=== PATIENT | male | born 1955 | race African-American/Black ===

== ENCOUNTER 2024-07-08 03:34 | Emergency (ER) | payer MEDICARE, MEDICAID ==
[~2024-07-08] VITALS: Ht 182.9 cm; Wt 61.0 kg
[~2024-07-08 03:34] MED LIST: DOCU-422 PO; ENOX80DI8 SUBCUT; FINA5TAB11 PO; IPRA3AMP9 NEB; PANT40TA51 PO; TAMSULOSIN PO
[2024-07-08 03:39] VITALS: O2SAT 100
[2024-07-08 03:52] VITALS: TEMP 36.83628
[2024-07-08 10:39] VITALS: BP 123/73; PULSE 90; RESP 18; O2SAT 93
== END 2024-07-08 10:40 | disposition home or self-care (01) ==
LOC: ER 03:45
DX: R33.9 Retention of urine, unspecified (principal); E11.9 Type 2 diabetes mellitus without complications; N28.9 Disorder of kidney and ureter, unspecified; Z86.718 Personal history of other venous thrombosis and embolism; Z79.899 Other long term (current) drug therapy
CPT/HCPCS: 51702; 99284

== ENCOUNTER 2024-07-11 09:50 | Emergency (ER) | payer MEDICARE, MEDICAID ==
[~2024-07-11] VITALS: Ht 182.9 cm; Wt 59.0 kg
[2024-07-11 09:57] VITALS: O2SAT 96
[2024-07-11] MEDS: LEVOFLOXACIN 750MG PREMIX 150 ML IV ONE (12:00)
[2024-07-11] MEDS: ACETAMINOPHEN WITH CODEINE 300/30MG TABLET PO ONE (12:15)
[2024-07-11 12:27] LABS: CHLORIDE 92 mEq/L (98-107); POTASSIUM 4.1 mEq/L (3.5-5.1); SODIUM 135 mEq/L (136-145)
[2024-07-11 12:28] LABS: CALCIUM 9.5 mg/dL (8.7-10.4); CARBON DIOXIDE 40 mEq/L (21-32); HEMATOCRIT. 38.2 % (42.0-52.0); MEAN CORPUSCULAR HEMOGLOBIN 31.1 pg (28.0-32.0); MEAN CORPUSCULAR VOLUME 91.5 fL (80.0-94.0); MEAN PLATELET VOLUME 6.8 fl (7.4-10.4); PLATELET 268 x1000/uL (130-400); RED BLOOD CELL COUNT 4.17 mill/uL (4.7-6.1); RED CELL DISTRIBUTION WIDTH 14.1 % (11.6-14.6); WHITE BLOOD COUNT 9.5 x1000/uL (4.5-11.0)
[2024-07-11 12:33] LABS: CREATININE 0.4 mg/dL (0.6-1.3); GLUCOSE 123 mg/dL (70-105); UREA NITROGEN BLOOD 8 mg/dL (9-23)
[2024-07-11 12:54] LABS: DIFFERENTIAL COMMENT 1
[2024-07-11 13:21] LABS: CLARITY URINE TURBID (CLEAR); COLOR URINE YELLOW (YELLOW); GLUCOSE URINE NEGATIVE (NEGATIVE); KETONES URINE NEGATIVE (NEGATIVE); LEUKOCYTE ESTERASE URINE TRACE (NEGATIVE); NITRITE URINE NEGATIVE (NEGATIVE); OCCULT BLOOD URINE 2+ (NEGATIVE); PROTEIN URINE TRACE (NEGATIVE); SPECIFIC GRAVITY URINE 1.009 (1.005-1.030); UROBILINOGEN URINE 0.2 E.U./dL (0.2-1.0)
[2024-07-11 13:29] VITALS: TEMP 97.6
[2024-07-11 13:33] LABS: SQUAMOUS EPITHELIAL CELL URINE RARE /lpf (RARE/1+)
[2024-07-11 13:34] LABS: AMORPHOUS SEDIMENT URINE 1+ /lpf; BACTERIA URINE 1+; RBC URINE 25-50 /hpf (0-2)
[2024-07-11] MEDS: LEVOFLOXACIN 250MG PREMIX 50 ML IV SCH (14:15)
[2024-07-11 14:32] VITALS: BP 143/85; PULSE 97; RESP 19; O2SAT 97
[2024-07-11 15:07] LABS: PLATELET ESTIMATE NORMAL
== END 2024-07-11 14:34 | disposition home or self-care (01) ==
LOC: ER 09:57 → EDBEDREQ 12:38 → ER 14:34
DX: T83.010A Breakdown (mechanical) of cystostomy catheter, initial encounter (principal); E11.9 Type 2 diabetes mellitus without complications; D64.9 Anemia, unspecified; N40.0 Benign prostatic hyperplasia without lower urinary tract symptoms; Z79.899 Other long term (current) drug therapy; Z86.718 Personal history of other venous thrombosis and embolism; X58.XXXA Exposure to other specified factors, initial encounter; Y93.89 Activity, other specified; Y92.89 Other specified places as the place of occurrence of the external cause; Y99.8 Other external cause status
CPT/HCPCS: 99285; 96365; 80048; 81003; 85025; 87086; 36415; J1956; C1893

== ENCOUNTER 2024-07-11 22:41 | Inpatient (IN) | payer MEDICARE, MEDICAID ==
[~2024-07-11] VITALS: Ht 177.8 cm; Wt 65.8 kg
[2024-07-12] VITALS (16 sets, daily range): BP systolic 93–156; BP diastolic 60–106; PULSE 80–141; RESP 17–20; TEMP 37.61412–37.6412; O2SAT 96–100
[2024-07-12 02:26] LABS: BASOPHILS % 0.3 % (0.0-2.0); EOSINOPHILS % 0.1 % (0.0-5.0); HEMATOCRIT. 38.9 % (42.0-52.0); HEMOGLOBIN. 13.1 g/dL (14.0-18.0); LYMPHOCYTES % 7.4 % (20.0-50.0); MEAN CORPUSCULAR HGB CONC 33.8 g/dL (31.0-37.0); MEAN CORPUSCULAR VOLUME 91.8 fL (80.0-94.0); MEAN PLATELET VOLUME 6.9 fl (7.4-10.4); MONOCYTES % 5.2 % (2.0-8.0); PLATELET 262 x1000/uL (130-400); RED BLOOD CELL COUNT 4.24 mill/uL (4.7-6.1); RED CELL DISTRIBUTION WIDTH 13.9 % (11.6-14.6); WHITE BLOOD COUNT 8.1 x1000/uL (4.5-11.0)
[2024-07-12 04:26] LABS: CLARITY URINE CLOUDY (CLEAR); COLOR URINE YELLOW (YELLOW); GLUCOSE URINE NEGATIVE (NEGATIVE); KETONES URINE NEGATIVE (NEGATIVE); LEUKOCYTE ESTERASE URINE 1+ (NEGATIVE); NITRITE URINE NEGATIVE (NEGATIVE); OCCULT BLOOD URINE 2+ (NEGATIVE); PROTEIN URINE 1+ (NEGATIVE); SPECIFIC GRAVITY URINE 1.009 (1.005-1.030); UROBILINOGEN URINE 0.2 E.U./dL (0.2-1.0)
[2024-07-12 04:54] LABS: CHLORIDE 91 mEq/L (98-107); SODIUM 138 mEq/L (136-145)
[2024-07-12 04:58] LABS: CALCIUM 9.7 mg/dL (8.7-10.4); CREATININE 0.4 mg/dL (0.6-1.3); GLUCOSE 139 mg/dL (70-105); UREA NITROGEN BLOOD 10 mg/dL (9-23)
[2024-07-12 05:01] LABS: CARBON DIOXIDE > 40 mEq/L (21-32)
[2024-07-12 05:07] LABS: BACTERIA URINE 1+; SQUAMOUS EPITHELIAL CELL URINE 1+ /lpf (RARE/1+)
[2024-07-12] MEDS ORDERED: LEVOFLOXACIN 250MG PREMIX 50 ML IV SCH (10:30)
[2024-07-12] MEDS ORDERED: GUAIFENESIN 200MG/10ML SUGAR FREE UDC PO PRN (10:30)
[2024-07-12] MEDS ORDERED: MAGNESIUM/ALUMINUM HYDROXIDE/SIMETHICONE 30ML UDC PO PRN (10:30)
[2024-07-12] MEDS ORDERED: ONDANSETRON HCL 4MG/2ML INJ IV PRN (10:30)
[2024-07-12 13:25] LABS: HEMATOCRIT. 40.5 % (42.0-52.0); HEMOGLOBIN. 13.3 g/dL (14.0-18.0); MEAN CORPUSCULAR HEMOGLOBIN 30.6 pg (28.0-32.0); MEAN CORPUSCULAR HGB CONC 32.7 g/dL (31.0-37.0); MEAN CORPUSCULAR VOLUME 93.6 fL (80.0-94.0); MEAN PLATELET VOLUME 6.9 fl (7.4-10.4); PLATELET 268 x1000/uL (130-400); RED BLOOD CELL COUNT 4.33 mill/uL (4.7-6.1)
[2024-07-12 13:27] LABS: DIFFERENTIAL COMMENT 1
[2024-07-12 13:38] LABS: BG BASE EXCESS 8.8 mmol/L (-2.0-3.0); BG CARBOXYHEMOGLOBIN 0.4 % (0.5-1.5); BG DEOXYHEMOGLOBIN 0.1 % (0.0-5.0); BG FRACTION INSPIRED OXYGEN 100; BG METHEMOGLOBIN 0.1 % (0.5-1.5); BG OXYGEN SATURATION 99.9 % (94.0-98.0); BG OXYHEMOGLOBIN 99.4 % (94.0-98.0); BG PCO2 119.7 mmHg (35.0-48.0); BG PH 7.163 (7.350-7.450); BG PO2 527.7 mmHg (83.0-108.0); BG SAMPLE SITE RIGHT RADIAL; BG TOTAL HEMOGLOBIN 13.3 g/dL (13.5-17.5); BG VENT MODE VENT - AC
[2024-07-12 13:44] LABS: CHLORIDE 95 mEq/L (98-107); POTASSIUM 4.9 mEq/L (3.5-5.1); SODIUM 142 mEq/L (136-145)
[2024-07-12 13:45] LABS: CALCIUM 9.5 mg/dL (8.7-10.4); CARBON DIOXIDE 39 mEq/L (21-32)
[2024-07-12 13:50] LABS: CREATININE 0.5 mg/dL (0.6-1.3); GLUCOSE 159 mg/dL (70-105); UREA NITROGEN BLOOD 15 mg/dL (9-23)
[2024-07-12 13:52] LABS: PHOSPHORUS 5.2 mg/dL (2.5-4.9); TROPONIN I HIGH SENSITIVITY 17 ng/L (3.0-53)
[2024-07-12] MEDS ORDERED: PROPOFOL 10MG/ML 100ML 100 ML IV PRN (14:00)
[2024-07-12] MEDS ORDERED: PHENYLEPHRINE 50MG/250ML PMX 250 ML IV PRN (15:45)
[2024-07-12] MEDS ORDERED: DEXTROSE 50% WATER 50ML SYRINGE IV PRN (15:45)
[2024-07-12 16:04] LABS: CHLORIDE 97 mEq/L (98-107); POTASSIUM 4.4 mEq/L (3.5-5.1); SODIUM 143 mEq/L (136-145)
[2024-07-12 16:05] LABS: CALCIUM 9.4 mg/dL (8.7-10.4); CARBON DIOXIDE 36 mEq/L (21-32)
[2024-07-12 16:10] LABS: CREATININE 0.4 mg/dL (0.6-1.3); GLUCOSE 119 mg/dL (70-105); UREA NITROGEN BLOOD 16 mg/dL (9-23)
[2024-07-12 16:11] LABS: TROPONIN I HIGH SENSITIVITY 27 ng/L (3.0-53)
[2024-07-12 16:12] LABS: BG BASE EXCESS 8.3 mmol/L (-2.0-3.0); BG CARBOXYHEMOGLOBIN 0.1 % (0.5-1.5); BG DEOXYHEMOGLOBIN 1.2 % (0.0-5.0); BG FRACTION INSPIRED OXYGEN 40; BG HCO3 ACT 32.3 mmol/L (21.0-28.0); BG METHEMOGLOBIN 0.2 % (0.5-1.5); BG OXYGEN SATURATION 98.8 % (94.0-98.0); BG OXYHEMOGLOBIN 98.5 % (94.0-98.0); BG PCO2 42.5 mmHg (35.0-48.0); BG PH 7.499 (7.350-7.450); BG PO2 138.1 mmHg (83.0-108.0); BG SAMPLE SITE RIGHT RADIAL; BG TOTAL HEMOGLOBIN 12.7 g/dL (13.5-17.5); BG TOTAL RESPIRATORY RATE 20 b/min; BG VENT MODE VENT - AC
[2024-07-12 16:12] LABS: ALANINE AMINOTRANSFERASE 45 IU/L (10-49); ASPARTATE AMINOTRANSFERASE 30 IU/L (<34); BILIRUBIN TOTAL 0.9 mg/dL (0.1-1.0); PROTEIN TOTAL 6.8 g/dL (6.0-8.3)
[2024-07-12 16:19] LABS: PROTHROMBIN TIME 10.9 sec (9.6-11.0)
[2024-07-12] MEDS: LEVOFLOXACIN 250MG TABLET PO SCH (17:30)
[2024-07-12] MEDS: BLOOD SUGAR DIAGNOSTIC STRIP TEST SCH (17:30)
[2024-07-12] MEDS: FINASTERIDE 5MG TABLET PO SCH (17:30)
[2024-07-12] MEDS: HYDRALAZINE 20MG/ML VIAL IV ONE (17:30)
[2024-07-12] MEDS: INSULIN LISPRO 100 UNITS/ML SUBCUT SCH (18:00)
[2024-07-12 19:31] LABS: *AMPHETAMINES SCREEN URINE NEGATIVE (NEGATIVE); *BARBITURATES SCREEN URINE NEGATIVE (NEGATIVE); *BENZODIAZEPINES SCREEN URINE NEGATIVE (NEGATIVE); *COCAINE SCREEN URINE NEGATIVE (NEGATIVE); CANNABINOID URINE SCREEN NEGATIVE (NEGATIVE); ECSTASY MDMA SCREEN URINE NEGATIVE (NEGATIVE); METHADONE URINE SCREEN NEGATIVE (NEGATIVE); OPIATES URINE SCREEN PRESUMPTIVE POSITIVE (NEGATIVE); PHENCYCLIDINE URINE SCREEN NEGATIVE (NEGATIVE)
[2024-07-12 19:40] LABS: PLATELET ESTIMATE NORMAL
[2024-07-12] MEDS: PROPOFOL 10MG/ML 100ML 100 ML IV PRN (21:52)
[2024-07-13] VITALS (99 sets, daily range): BP systolic 88–133; BP diastolic 54–89; PULSE 100–125; RESP 11–22; TEMP 36.6696–37.61412; O2SAT 99–100
[2024-07-13 06:16] LABS: AMMONIA 52 uMol/L (<32)
[2024-07-13] MEDS: PANTOPRAZOLE SODIUM 40 MG/VIAL IV SCH (08:57)
[2024-07-13] MEDS: ACETAMINOPHEN 325MG TABLET PO PRN (08:57)
[2024-07-13 09:20] LABS: BG BASE EXCESS 12.4 mmol/L (-2.0-3.0); BG CARBOXYHEMOGLOBIN 0.4 % (0.5-1.5); BG DEOXYHEMOGLOBIN 0.7 % (0.0-5.0); BG FRACTION INSPIRED OXYGEN 40; BG HCO3 ACT 34.4 mmol/L (21.0-28.0); BG OXYGEN SATURATION 99.3 % (94.0-98.0); BG OXYHEMOGLOBIN 98.9 % (94.0-98.0); BG PCO2 34.7 mmHg (35.0-48.0); BG PH 7.614 (7.350-7.450); BG PO2 202.5 mmHg (83.0-108.0); BG SAMPLE SITE RIGHT RADIAL; BG TOTAL HEMOGLOBIN 12.1 g/dL (13.5-17.5); BG TOTAL RESPIRATORY RATE 20 b/min; BG VENT MODE VENT - AC
[2024-07-13] MEDS: PHENYLEPHRINE 50MG/250ML PMX 250 ML IV PRN (15:42)
[2024-07-13 18:02] LABS: CHLORIDE 101 mEq/L (98-107); SODIUM 143 mEq/L (136-145)
[2024-07-13 18:04] LABS: CARBON DIOXIDE 35 mEq/L (21-32)
[2024-07-13 18:05] LABS: CALCIUM 9.5 mg/dL (8.7-10.4)
[2024-07-13 18:10] LABS: CREATININE 0.5 mg/dL (0.6-1.3); GLUCOSE 84 mg/dL (70-105); UREA NITROGEN BLOOD 21 mg/dL (9-23)
[2024-07-13 18:11] LABS: ALANINE AMINOTRANSFERASE 31 IU/L (10-49); ALBUMIN 3.7 g/dL (3.2-4.8); ASPARTATE AMINOTRANSFERASE 27 IU/L (<34)
[2024-07-13 18:12] LABS: BILIRUBIN DIRECT 0.5 mg/dL (<=3.0); BILIRUBIN TOTAL 1.7 mg/dL (0.1-1.0); PROTEIN TOTAL 6.2 g/dL (6.0-8.3)
[2024-07-13 18:15] LABS: POTASSIUM 2.8 mEq/L (3.5-5.1)
[2024-07-13 18:22] LABS: BASOPHILS % 0.3 % (0.0-2.0); EOSINOPHILS % 0.2 % (0.0-5.0); HEMATOCRIT. 35.5 % (42.0-52.0); HEMOGLOBIN. 12.3 g/dL (14.0-18.0); LYMPHOCYTES % 9.9 % (20.0-50.0); MEAN CORPUSCULAR HEMOGLOBIN 31.4 pg (28.0-32.0); MEAN CORPUSCULAR HGB CONC 34.6 g/dL (31.0-37.0); MEAN CORPUSCULAR VOLUME 90.8 fL (80.0-94.0); MEAN PLATELET VOLUME 7.4 fl (7.4-10.4); MONOCYTES % 10.7 % (2.0-8.0); NEUTROPHILS % 78.9 % (40.0-76.0); PLATELET 265 x1000/uL (130-400); RED BLOOD CELL COUNT 3.91 mill/uL (4.7-6.1); RED CELL DISTRIBUTION WIDTH 14.2 % (11.6-14.6); WHITE BLOOD COUNT 8.9 x1000/uL (4.5-11.0)
[2024-07-13] MEDS: ENOXAPARIN 60MG/0.6ML SYR SUBCUT SCH (18:33)
[2024-07-13] MEDS: TAMSULOSIN HCL 0.4MG SR CAPSULE PO SCH (18:35)
[2024-07-13] MEDS: KCL 20MEQ/100ML PREMIX 100 ML IV SCH (20:28)
[2024-07-13] MEDS ORDERED: IOHEXOL-350 100 ML BOTTLE ONE (23:29)
[2024-07-13] MEDS: PHENYLEPHRINE 50 MG in DEXTROSE 5% WATER 250 ML IV PRN (23:47)
[2024-07-14] VITALS (102 sets, daily range): BP systolic 79–127; BP diastolic 56–101; PULSE 97–144; RESP 12–23; TEMP 36.83628–38.3364; O2SAT 97–100
[2024-07-14] MEDS: PROPOFOL 10MG/ML 100ML 100 ML IV PRN ×2 (02:16→23:24)
[2024-07-14 06:34] LABS: CHLORIDE 102 mEq/L (98-107); POTASSIUM 3.8 mEq/L (3.5-5.1); SODIUM 142 mEq/L (136-145)
[2024-07-14 06:35] LABS: CARBON DIOXIDE 30 mEq/L (21-32)
[2024-07-14 06:36] LABS: CALCIUM 9.4 mg/dL (8.7-10.4)
[2024-07-14 06:39] LABS: BASOPHILS % 0.1 % (0.0-2.0); HEMATOCRIT. 36.1 % (42.0-52.0); HEMOGLOBIN. 12.6 g/dL (14.0-18.0); LYMPHOCYTES % 9.7 % (20.0-50.0); MEAN CORPUSCULAR HEMOGLOBIN 32.2 pg (28.0-32.0); MEAN CORPUSCULAR HGB CONC 34.8 g/dL (31.0-37.0); MEAN CORPUSCULAR VOLUME 92.6 fL (80.0-94.0); MEAN PLATELET VOLUME 7.4 fl (7.4-10.4); MONOCYTES % 10.4 % (2.0-8.0); NEUTROPHILS % 79.8 % (40.0-76.0); PLATELET 245 x1000/uL (130-400); RED CELL DISTRIBUTION WIDTH 14.3 % (11.6-14.6); WHITE BLOOD COUNT 9.7 x1000/uL (4.5-11.0)
[2024-07-14 06:40] LABS: CREATININE 0.5 mg/dL (0.6-1.3); GLUCOSE 86 mg/dL (70-105); TRIGLYCERIDE 106 mg/dL (0-150); UREA NITROGEN BLOOD 16 mg/dL (9-23)
[2024-07-14 06:42] LABS: PHOSPHORUS 3.3 mg/dL (2.5-4.9)
[2024-07-14 10:55] LABS: BG CARBOXYHEMOGLOBIN 0.9 % (0.5-1.5); BG DEOXYHEMOGLOBIN 0.5 % (0.0-5.0); BG FRACTION INSPIRED OXYGEN 35; BG HCO3 ACT 30.6 mmol/L (21.0-28.0); BG METHEMOGLOBIN 0.3 % (0.5-1.5); BG OXYGEN SATURATION 99.5 % (94.0-98.0); BG OXYHEMOGLOBIN 98.3 % (94.0-98.0); BG PH 7.502 (7.350-7.450); BG PO2 193.3 mmHg (83.0-108.0); BG SAMPLE SITE RIGHT BRACHIAL; BG TOTAL HEMOGLOBIN 11.8 g/dL (13.5-17.5); BG VENT MODE VENT - AC
[2024-07-14 16:56] LABS: CREATINE KINASE MB FRACTION 4.7 ng/mL (0.5-3.6)
[2024-07-15] VITALS (103 sets, daily range): BP systolic 80–122; BP diastolic 57–86; PULSE 89–118; RESP 12–29; TEMP 36.83628–38.00304; O2SAT 97–100
[2024-07-15 00:59] LABS: TROPONIN I HIGH SENSITIVITY 33 ng/L (3.0-53)
[2024-07-15 05:46] LABS: BASOPHILS % 0.1 % (0.0-2.0); EOSINOPHILS % 0.6 % (0.0-5.0); HEMATOCRIT. 34.2 % (42.0-52.0); HEMOGLOBIN. 11.9 g/dL (14.0-18.0); LYMPHOCYTES % 7.7 % (20.0-50.0); MEAN CORPUSCULAR HEMOGLOBIN 31.8 pg (28.0-32.0); MEAN CORPUSCULAR HGB CONC 34.9 g/dL (31.0-37.0); MEAN PLATELET VOLUME 7.1 fl (7.4-10.4); MONOCYTES % 10.4 % (2.0-8.0); NEUTROPHILS % 81.2 % (40.0-76.0); PLATELET 223 x1000/uL (130-400); RED BLOOD CELL COUNT 3.76 mill/uL (4.7-6.1); RED CELL DISTRIBUTION WIDTH 14.1 % (11.6-14.6); WHITE BLOOD COUNT 9.8 x1000/uL (4.5-11.0)
[2024-07-15 05:59] LABS: CARBON DIOXIDE 35 mEq/L (21-32); CHLORIDE 99 mEq/L (98-107); POTASSIUM 3.1 mEq/L (3.5-5.1); SODIUM 139 mEq/L (136-145)
[2024-07-15 06:00] LABS: CALCIUM 8.8 mg/dL (8.7-10.4)
[2024-07-15 06:04] LABS: TROPONIN I HIGH SENSITIVITY 30 ng/L (3.0-53)
[2024-07-15 06:05] LABS: CREATININE 0.4 mg/dL (0.6-1.3); GLUCOSE 120 mg/dL (70-105); TRIGLYCERIDE 71 mg/dL (0-150); UREA NITROGEN BLOOD 12 mg/dL (9-23)
[2024-07-15 06:07] LABS: PHOSPHORUS 3.1 mg/dL (2.5-4.9)
[2024-07-15 08:06] LABS: ALPHA FETOPROTEIN TUMOR MARKER 6.3 ng/mL (0.0-8.4); CA 19-9 < 2 U/mL (0-35)
[2024-07-15] MEDS: POTASSIUM CHLORIDE 20MEQ/PACKET NG NR (10:01)
[2024-07-15] MEDS: SODIUM CHLORIDE 0.9% 1,000 ML IV SCH (10:02)
[2024-07-15] MEDS: MAGNESIUM 2 G PREMIX 50 ML IV NR (10:02)
[2024-07-15 10:34] LABS: BG BASE EXCESS 8.7 mmol/L (-2.0-3.0); BG CARBOXYHEMOGLOBIN 0.9 % (0.5-1.5); BG DEOXYHEMOGLOBIN 0.9 % (0.0-5.0); BG FRACTION INSPIRED OXYGEN 30; BG HCO3 ACT 33.6 mmol/L (21.0-28.0); BG METHEMOGLOBIN 0.1 % (0.5-1.5); BG OXYGEN SATURATION 99.1 % (94.0-98.0); BG OXYHEMOGLOBIN 98.1 % (94.0-98.0); BG PCO2 47.4 mmHg (35.0-48.0); BG PH 7.468 (7.350-7.450); BG PO2 148.6 mmHg (83.0-108.0); BG SAMPLE SITE RIGHT RADIAL; BG TOTAL HEMOGLOBIN 12.6 g/dL (13.5-17.5); BG VENT MODE VENT - AC
[2024-07-15] MEDS: LACTULOSE 20G/30ML UDC PO PRN (13:27)
[2024-07-15] MEDS: NA PHOS,M-B/NA PHOS,DI-BA ENEMA 118ML PR NR (15:12)
[2024-07-15] MEDS: LACTULOSE 20G/30ML UDC PO SCH (15:45)
[2024-07-15] MEDS: PROPOFOL 10MG/ML 100ML 100 ML IV PRN (18:16)
[2024-07-16] VITALS (73 sets, daily range): BP systolic 91–136; BP diastolic 56–84; PULSE 100–125; RESP 12–24; TEMP 36.6696–37.39188; O2SAT 94–100
[2024-07-16 05:56] LABS: HEMATOCRIT. 31.2 % (42.0-52.0); HEMOGLOBIN. 10.8 g/dL (14.0-18.0); MEAN CORPUSCULAR HEMOGLOBIN 31.6 pg (28.0-32.0); MEAN CORPUSCULAR HGB CONC 34.5 g/dL (31.0-37.0); MEAN CORPUSCULAR VOLUME 91.6 fL (80.0-94.0); MEAN PLATELET VOLUME 7.4 fl (7.4-10.4); PLATELET 219 x1000/uL (130-400); RED BLOOD CELL COUNT 3.41 mill/uL (4.7-6.1); RED CELL DISTRIBUTION WIDTH 13.9 % (11.6-14.6)
[2024-07-16 05:59] LABS: CALCIUM 8.3 mg/dL (8.7-10.4); CARBON DIOXIDE 30 mEq/L (21-32); CHLORIDE 102 mEq/L (98-107); POTASSIUM 3.8 mEq/L (3.5-5.1); SODIUM 140 mEq/L (136-145)
[2024-07-16 06:04] LABS: CREATININE 0.3 mg/dL (0.6-1.3)
[2024-07-16 06:05] LABS: GLUCOSE 114 mg/dL (70-105); TRIGLYCERIDE 72 mg/dL (0-150); UREA NITROGEN BLOOD 10 mg/dL (9-23)
[2024-07-16 06:55] LABS: DIFFERENTIAL COMMENT 1
[2024-07-16 09:23] LABS: PLATELET ESTIMATE NORMAL
[2024-07-16 09:42] LABS: BG BASE EXCESS 7.9 mmol/L (-2.0-3.0); BG CARBOXYHEMOGLOBIN 0.3 % (0.5-1.5); BG DEOXYHEMOGLOBIN 1.3 % (0.0-5.0); BG FRACTION INSPIRED OXYGEN 30; BG HCO3 ACT 33.3 mmol/L (21.0-28.0); BG METHEMOGLOBIN 0.1 % (0.5-1.5); BG OXYGEN SATURATION 98.7 % (94.0-98.0); BG OXYHEMOGLOBIN 98.3 % (94.0-98.0); BG PH 7.433 (7.350-7.450); BG PO2 137.2 mmHg (83.0-108.0); BG SAMPLE SITE RIGHT RADIAL; BG TOTAL HEMOGLOBIN 10.9 g/dL (13.5-17.5); BG VENT MODE VENT - AC
[2024-07-16] MEDS: LEVOFLOXACIN 250MG TABLET PO SCH (11:16)
[2024-07-16] MEDS ORDERED: PROPOFOL 10MG/ML 100ML 100 ML IV PRN (17:00)
[2024-07-16 17:30] LABS: BG BASE EXCESS 6.6 mmol/L (-2.0-3.0); BG CARBOXYHEMOGLOBIN 0.3 % (0.5-1.5); BG DEOXYHEMOGLOBIN 1.4 % (0.0-5.0); BG FRACTION INSPIRED OXYGEN 30; BG METHEMOGLOBIN 0.4 % (0.5-1.5); BG OXYGEN SATURATION 98.6 % (94.0-98.0); BG OXYHEMOGLOBIN 97.9 % (94.0-98.0); BG PCO2 49.6 mmHg (35.0-48.0); BG PH 7.427 (7.350-7.450); BG PO2 136.7 mmHg (83.0-108.0); BG SAMPLE SITE RIGHT RADIAL; BG TOTAL HEMOGLOBIN 11.2 g/dL (13.5-17.5); BG VENT MODE VENT - CPAP
[2024-07-17] VITALS (54 sets, daily range): BP systolic 81–144; BP diastolic 53–100; PULSE 91–130; RESP 6–36; TEMP 36.6696–37.11408; O2SAT 92–100
[2024-07-17 06:11] LABS: CHLORIDE 105 mEq/L (98-107); POTASSIUM 4.1 mEq/L (3.5-5.1); SODIUM 142 mEq/L (136-145)
[2024-07-17 06:12] LABS: CALCIUM 8.6 mg/dL (8.7-10.4); CARBON DIOXIDE 30 mEq/L (21-32)
[2024-07-17 06:17] LABS: GLUCOSE 119 mg/dL (70-105); TRIGLYCERIDE 70 mg/dL (0-150); UREA NITROGEN BLOOD 8 mg/dL (9-23)
[2024-07-17 06:18] LABS: AMMONIA 45 uMol/L (<32)
[2024-07-17 06:19] LABS: ALANINE AMINOTRANSFERASE 100 IU/L (10-49); ALBUMIN 3.4 g/dL (3.2-4.8); ASPARTATE AMINOTRANSFERASE 68 IU/L (<34); BILIRUBIN DIRECT 0.2 mg/dL (<=3.0); BILIRUBIN TOTAL 0.5 mg/dL (0.1-1.0); PROTEIN TOTAL 5.8 g/dL (6.0-8.3)
[2024-07-17 06:30] LABS: HEMATOCRIT. 31.6 % (42.0-52.0); MEAN CORPUSCULAR HEMOGLOBIN 31.8 pg (28.0-32.0); MEAN CORPUSCULAR HGB CONC 34.7 g/dL (31.0-37.0); MEAN CORPUSCULAR VOLUME 91.8 fL (80.0-94.0); MEAN PLATELET VOLUME 7.7 fl (7.4-10.4); PLATELET 212 x1000/uL (130-400); RED BLOOD CELL COUNT 3.45 mill/uL (4.7-6.1); RED CELL DISTRIBUTION WIDTH 14.1 % (11.6-14.6); WHITE BLOOD COUNT 9.2 x1000/uL (4.5-11.0)
[2024-07-17 06:32] LABS: HEPATITIS B SURFACE ANTIGEN NEGATIVE (Negative)
[2024-07-17 06:52] LABS: CREATININE 0.2 mg/dL (0.6-1.3); HEPATITIS A AB IGM NEGATIVE (Negative)
[2024-07-17 06:53] LABS: HEPATITIS B CORE AB IGM NEGATIVE (Negative); HEPATITIS C AB NON REACTIVE (Neg) (Negative)
[2024-07-17] MEDS ORDERED: IPRATROPIUM/ALBUTEROL 0.5-3(2.5)MG/3ML NEB HHN PRN (07:15)
[2024-07-17] MEDS: IPRATROPIUM/ALBUTEROL 0.5-3(2.5)MG/3ML NEB HHN SCH (07:40)
[2024-07-17 07:47] LABS: DIFFERENTIAL COMMENT 1
[2024-07-17] MEDS: METHYLPREDNISOLONE SOD SUCC 125MG/2ML (ACT-O-VIAL) IV SCH (08:38)
[2024-07-17 10:02] LABS: BG BASE EXCESS 6.4 mmol/L (-2.0-3.0); BG CARBOXYHEMOGLOBIN 0.3 % (0.5-1.5); BG DEOXYHEMOGLOBIN 1.9 % (0.0-5.0); BG FRACTION INSPIRED OXYGEN 30; BG HCO3 ACT 32.9 mmol/L (21.0-28.0); BG METHEMOGLOBIN 0.3 % (0.5-1.5); BG OXYGEN SATURATION 98.1 % (94.0-98.0); BG OXYHEMOGLOBIN 97.5 % (94.0-98.0); BG PCO2 57.5 mmHg (35.0-48.0); BG PH 7.376 (7.350-7.450); BG PO2 110.8 mmHg (83.0-108.0); BG SAMPLE SITE LEFT BRACHIAL; BG TOTAL HEMOGLOBIN 11.2 g/dL (13.5-17.5); BG TOTAL RESPIRATORY RATE 17 b/min; BG VENT MODE MASK - BIPAP
[2024-07-17 17:37] LABS: PLATELET ESTIMATE NORMAL
[2024-07-17] MEDS: RIFAXIMIN 550 MG TABLET NG SCH (21:12)
[2024-07-17] MEDS: METHYLPREDNISOLONE SOD SUCC 40MG/ML (ACT-O-VIAL) IV SCH (21:12)
[2024-07-17] MEDS: LORAZEPAM 2MG/ML INJ IV PRN (21:39)
[2024-07-18] VITALS (21 sets, daily range): BP systolic 96–160; BP diastolic 20–104; PULSE 92–127; RESP 15–30; TEMP 36.28068–36.9474; O2SAT 67–100
[2024-07-18 06:02] LABS: BASOPHILS % 0.2 % (0.0-2.0); EOSINOPHILS % 0.1 % (0.0-5.0); HEMATOCRIT. 29.5 % (42.0-52.0); MEAN CORPUSCULAR HEMOGLOBIN 31.7 pg (28.0-32.0); MEAN CORPUSCULAR HGB CONC 34.1 g/dL (31.0-37.0); MEAN PLATELET VOLUME 7.2 fl (7.4-10.4); MONOCYTES % 7.4 % (2.0-8.0); NEUTROPHILS % 84.3 % (40.0-76.0); PLATELET 264 x1000/uL (130-400); RED BLOOD CELL COUNT 3.17 mill/uL (4.7-6.1); RED CELL DISTRIBUTION WIDTH 13.8 % (11.6-14.6); WHITE BLOOD COUNT 8.4 x1000/uL (4.5-11.0)
[2024-07-18 06:05] LABS: AMMONIA 54 uMol/L (<32)
[2024-07-18 06:13] LABS: CHLORIDE 106 mEq/L (98-107); POTASSIUM 4.2 mEq/L (3.5-5.1); SODIUM 144 mEq/L (136-145)
[2024-07-18 06:17] LABS: CARBON DIOXIDE 31 mEq/L (21-32)
[2024-07-18 06:18] LABS: CALCIUM 8.9 mg/dL (8.7-10.4)
[2024-07-18 06:22] LABS: GLUCOSE 89 mg/dL (70-105)
[2024-07-18 06:23] LABS: UREA NITROGEN BLOOD 9 mg/dL (9-23)
[2024-07-18 06:24] LABS: ALANINE AMINOTRANSFERASE 70 IU/L (10-49); ALBUMIN 3.1 g/dL (3.2-4.8); ASPARTATE AMINOTRANSFERASE 28 IU/L (<34)
[2024-07-18 06:25] LABS: BILIRUBIN DIRECT 0.1 mg/dL (<=3.0); BILIRUBIN TOTAL 0.5 mg/dL (0.1-1.0); PROTEIN TOTAL 5.3 g/dL (6.0-8.3)
[2024-07-18 06:30] LABS: CREATININE 0.3 mg/dL (0.6-1.3)
[2024-07-18 08:34] LABS: BG BASE EXCESS 11.1 mmol/L (-2.0-3.0); BG CARBOXYHEMOGLOBIN 0.8 % (0.5-1.5); BG DEOXYHEMOGLOBIN 1.4 % (0.0-5.0); BG FRACTION INSPIRED OXYGEN 30; BG HCO3 ACT 36.5 mmol/L (21.0-28.0); BG METHEMOGLOBIN 0.2 % (0.5-1.5); BG OXYGEN SATURATION 98.6 % (94.0-98.0); BG OXYHEMOGLOBIN 97.6 % (94.0-98.0); BG PCO2 53.8 mmHg (35.0-48.0); BG PH 7.449 (7.350-7.450); BG PO2 120.8 mmHg (83.0-108.0); BG TOTAL HEMOGLOBIN 8.8 g/dL (13.5-17.5); BG VENT MODE MASK - BIPAP
[2024-07-18 19:48] LABS: BG BASE EXCESS 9.3 mmol/L (-2.0-3.0); BG CARBOXYHEMOGLOBIN 0.3 % (0.5-1.5); BG DEOXYHEMOGLOBIN 6.2 % (0.0-5.0); BG HCO3 ACT 38.4 mmol/L (21.0-28.0); BG OXYGEN SATURATION 93.8 % (94.0-98.0); BG OXYHEMOGLOBIN 93.5 % (94.0-98.0); BG PCO2 78.5 mmHg (35.0-48.0); BG PH 7.307 (7.350-7.450); BG PO2 75.9 mmHg (83.0-108.0); BG SAMPLE SITE RIGHT RADIAL; BG TOTAL HEMOGLOBIN 12.2 g/dL (13.5-17.5)
[2024-07-18] MEDS: LACTULOSE 20G/30ML UDC NG SCH (20:36)
[2024-07-18 22:07] LABS: BG BASE EXCESS 6.8 mmol/L (-2.0-3.0); BG CARBOXYHEMOGLOBIN 0.2 % (0.5-1.5); BG DEOXYHEMOGLOBIN 3.3 % (0.0-5.0); BG FRACTION INSPIRED OXYGEN 30; BG HCO3 ACT 32.2 mmol/L (21.0-28.0); BG METHEMOGLOBIN 0.3 % (0.5-1.5); BG OXYGEN SATURATION 96.7 % (94.0-98.0); BG OXYHEMOGLOBIN 96.2 % (94.0-98.0); BG PCO2 49.5 mmHg (35.0-48.0); BG PH 7.431 (7.350-7.450); BG PO2 86.7 mmHg (83.0-108.0); BG SAMPLE SITE RIGHT RADIAL; BG TOTAL HEMOGLOBIN 11.7 g/dL (13.5-17.5); BG TOTAL RESPIRATORY RATE 23 b/min; BG VENT MODE MASK - BIPAP
[2024-07-19] VITALS (15 sets, daily range): BP systolic 121–158; BP diastolic 87–99; PULSE 95–121; RESP 15–34; TEMP 36.28068–37.2252; O2SAT 94–100
[2024-07-19] MEDS: CLONIDINE 0.1MG TABLET PO PRN (01:22)
[2024-07-19] MEDS: SERTRALINE HCL 25MG TABLET PO SCH (13:58)
[2024-07-19] MEDS: DEXT 5%/0.9% NACL 1,000 ML IV SCH (22:43)
[2024-07-20] VITALS (18 sets, daily range): BP systolic 121–166; BP diastolic 78–100; PULSE 100–122; RESP 19–32; TEMP 36.16956–37.2252; O2SAT 78–100
[2024-07-20 02:51] LABS: BG BASE EXCESS 5.6 mmol/L (-2.0-3.0); BG HCO3 ACT 30.4 mmol/L (21.0-28.0); BG PCO2 45.6 mmHg (35.0-48.0); BG PO2 75.3 mmHg (83.0-108.0)
[2024-07-20 02:52] LABS: BG BILEVEL POS AIRWAY PRESSURE 15/5; BG FRACTION INSPIRED OXYGEN 30; BG VENT MODE BIPAP; BG VENT RATE 20 set
[2024-07-20 07:46] LABS: AMMONIA 50 uMol/L (<32)
[2024-07-20 07:50] LABS: CARBON DIOXIDE 38 mEq/L (21-32); CHLORIDE 100 mEq/L (98-107); POTASSIUM 3.9 mEq/L (3.5-5.1); SODIUM 141 mEq/L (136-145)
[2024-07-20 07:51] LABS: CALCIUM 8.7 mg/dL (8.7-10.4)
[2024-07-20 07:55] LABS: CREATININE 0.3 mg/dL (0.6-1.3); GLUCOSE 111 mg/dL (70-105); IRON 42 ug/dL (65-175)
[2024-07-20 07:56] LABS: UREA NITROGEN BLOOD 8 mg/dL (9-23)
[2024-07-20 07:57] LABS: ALANINE AMINOTRANSFERASE 49 IU/L (10-49); ASPARTATE AMINOTRANSFERASE 20 IU/L (<34); TOTAL IRON BINDING CAPACITY 288 ug/dl (250-425)
[2024-07-20 07:58] LABS: BILIRUBIN DIRECT 0.1 mg/dL (<=3.0); BILIRUBIN TOTAL 0.5 mg/dL (0.1-1.0)
[2024-07-20 08:42] LABS: BASOPHILS % 0.1 % (0.0-2.0); HEMATOCRIT. 31.9 % (42.0-52.0); HEMOGLOBIN. 10.9 g/dL (14.0-18.0); LYMPHOCYTES % 11.2 % (20.0-50.0); MEAN CORPUSCULAR HEMOGLOBIN 31.2 pg (28.0-32.0); MEAN CORPUSCULAR HGB CONC 34.3 g/dL (31.0-37.0); MEAN PLATELET VOLUME 7.5 fl (7.4-10.4); MONOCYTES % 10.7 % (2.0-8.0); PLATELET 341 x1000/uL (130-400); RED CELL DISTRIBUTION WIDTH 13.8 % (11.6-14.6); WHITE BLOOD COUNT 6.1 x1000/uL (4.5-11.0)
[2024-07-20 09:37] LABS: BG BASE EXCESS 5.9 mmol/L (-2.0-3.0); BG CARBOXYHEMOGLOBIN 0.3 % (0.5-1.5); BG FRACTION INSPIRED OXYGEN 30; BG HCO3 ACT 31.1 mmol/L (21.0-28.0); BG METHEMOGLOBIN 0.3 % (0.5-1.5); BG OXYHEMOGLOBIN 92.4 % (94.0-98.0); BG PCO2 48.1 mmHg (35.0-48.0); BG PH 7.429 (7.350-7.450); BG PO2 67.3 mmHg (83.0-108.0); BG SAMPLE SITE RIGHT RADIAL; BG TOTAL HEMOGLOBIN 12.1 g/dL (13.5-17.5); BG VENT MODE MASK - BIPAP
[2024-07-20] MEDS: METOPROLOL TARTRATE 25MG TABLET PO SCH (10:00)
[2024-07-20] MEDS: FERROUS SULFATE 325MG TABLET PO SCH (10:50)
[2024-07-20] MEDS ORDERED: HYDRALAZINE 20MG/ML VIAL IV PRN (14:00)
[2024-07-20 19:53] LABS: BG BASE EXCESS 10.4 mmol/L (-2.0-3.0); BG CARBOXYHEMOGLOBIN 0.3 % (0.5-1.5); BG DEOXYHEMOGLOBIN 8.8 % (0.0-5.0); BG FRACTION INSPIRED OXYGEN 28; BG HCO3 ACT 39.9 mmol/L (21.0-28.0); BG METHEMOGLOBIN 0.3 % (0.5-1.5); BG OXYGEN SATURATION 91.1 % (94.0-98.0); BG OXYHEMOGLOBIN 90.6 % (94.0-98.0); BG PCO2 81.4 mmHg (35.0-48.0); BG PH 7.308 (7.350-7.450); BG SAMPLE SITE RIGHT RADIAL
[2024-07-20] MEDS: TRAZODONE HCL 50MG TABLET PO SCH (21:00)
[2024-07-21] VITALS (16 sets, daily range): BP systolic 109–155; BP diastolic 64–100; PULSE 109–120; RESP 19–29; TEMP 36.72516–37.66968; O2SAT 95–100
[2024-07-21 13:41] LABS: BG BASE EXCESS 12.7 mmol/L (-2.0-3.0); BG CARBOXYHEMOGLOBIN 0.3 % (0.5-1.5); BG DEOXYHEMOGLOBIN 1.1 % (0.0-5.0); BG FRACTION INSPIRED OXYGEN 40; BG HCO3 ACT 38.1 mmol/L (21.0-28.0); BG METHEMOGLOBIN 0.3 % (0.5-1.5); BG OXYGEN SATURATION 98.9 % (94.0-98.0); BG OXYHEMOGLOBIN 98.3 % (94.0-98.0); BG PH 7.475 (7.350-7.450); BG PO2 135.5 mmHg (83.0-108.0); BG SAMPLE SITE RIGHT RADIAL; BG TOTAL HEMOGLOBIN 11.4 g/dL (13.5-17.5); BG TOTAL RESPIRATORY RATE 23 b/min; BG VENT MODE MASK - BIPAP
[2024-07-21 19:23] LABS: CHLORIDE 99 mEq/L (98-107); POTASSIUM 3.4 mEq/L (3.5-5.1); SODIUM 142 mEq/L (136-145)
[2024-07-21 19:25] LABS: CALCIUM 8.9 mg/dL (8.7-10.4); CARBON DIOXIDE 38 mEq/L (21-32)
[2024-07-21 19:28] LABS: HEMATOCRIT. 32.5 % (42.0-52.0); HEMOGLOBIN. 11.1 g/dL (14.0-18.0); MEAN CORPUSCULAR HEMOGLOBIN 31.2 pg (28.0-32.0); MEAN CORPUSCULAR HGB CONC 34.2 g/dL (31.0-37.0); MEAN CORPUSCULAR VOLUME 91.4 fL (80.0-94.0); MEAN PLATELET VOLUME 7.3 fl (7.4-10.4); PLATELET 333 x1000/uL (130-400); RED BLOOD CELL COUNT 3.55 mill/uL (4.7-6.1); RED CELL DISTRIBUTION WIDTH 13.3 % (11.6-14.6); WHITE BLOOD COUNT 11.4 x1000/uL (4.5-11.0)
[2024-07-21 19:30] LABS: CREATININE 0.3 mg/dL (0.6-1.3); GLUCOSE 115 mg/dL (70-105)
[2024-07-21 19:31] LABS: UREA NITROGEN BLOOD 7 mg/dL (9-23)
[2024-07-21 19:32] LABS: ALANINE AMINOTRANSFERASE 45 IU/L (10-49); ALBUMIN 3.3 g/dL (3.2-4.8); ASPARTATE AMINOTRANSFERASE 20 IU/L (<34); BILIRUBIN DIRECT 0.2 mg/dL (<=3.0)
[2024-07-21 19:33] LABS: BILIRUBIN TOTAL 0.7 mg/dL (0.1-1.0); PHOSPHORUS 2.2 mg/dL (2.5-4.9); PROTEIN TOTAL 5.3 g/dL (6.0-8.3)
[2024-07-21 19:34] LABS: AMMONIA 81 uMol/L (<32)
[2024-07-21 19:38] LABS: DIFFERENTIAL COMMENT 1
[2024-07-21 20:14] LABS: PLATELET ESTIMATE NORMAL
[2024-07-21] MEDS: LORAZEPAM 2MG/ML INJ IV PRN (22:09)
[2024-07-22] VITALS (16 sets, daily range): BP systolic 109–145; BP diastolic 69–86; PULSE 80–117; RESP 18–28; TEMP 36.33624–37.66968; O2SAT 99–100
[2024-07-22] MEDS: MAGNESIUM 2 G PREMIX 50 ML IV NR (01:31)
[2024-07-22] MEDS: KCL 20MEQ/100ML PREMIX 100 ML IV SCH (01:31)
[2024-07-22 06:55] LABS: AMMONIA 44 uMol/L (<32)
[2024-07-22 07:11] LABS: HEMOGLOBIN. 10.7 g/dL (14.0-18.0); MEAN CORPUSCULAR HEMOGLOBIN 31.3 pg (28.0-32.0); MEAN CORPUSCULAR HGB CONC 34.5 g/dL (31.0-37.0); MEAN CORPUSCULAR VOLUME 90.7 fL (80.0-94.0); MEAN PLATELET VOLUME 7.3 fl (7.4-10.4); PLATELET 323 x1000/uL (130-400); RED BLOOD CELL COUNT 3.42 mill/uL (4.7-6.1); RED CELL DISTRIBUTION WIDTH 13.5 % (11.6-14.6); WHITE BLOOD COUNT 11.4 x1000/uL (4.5-11.0)
[2024-07-22 07:26] LABS: CHLORIDE 101 mEq/L (98-107); POTASSIUM 3.4 mEq/L (3.5-5.1); SODIUM 142 mEq/L (136-145)
[2024-07-22 07:28] LABS: CARBON DIOXIDE 35 mEq/L (21-32)
[2024-07-22 07:29] LABS: CALCIUM 8.7 mg/dL (8.7-10.4)
[2024-07-22 07:31] LABS: DIFFERENTIAL COMMENT 1
[2024-07-22 07:33] LABS: GLUCOSE 94 mg/dL (70-105)
[2024-07-22 07:34] LABS: UREA NITROGEN BLOOD 7 mg/dL (9-23)
[2024-07-22 07:35] LABS: ALANINE AMINOTRANSFERASE 39 IU/L (10-49); ASPARTATE AMINOTRANSFERASE 19 IU/L (<34)
[2024-07-22 07:36] LABS: BILIRUBIN DIRECT 0.2 mg/dL (<=3.0); BILIRUBIN TOTAL 0.8 mg/dL (0.1-1.0)
[2024-07-22 08:44] LABS: CREATININE 0.2 mg/dL (0.6-1.3)
[2024-07-22] MEDS: LORAZEPAM 0.5MG TABLET PO PRN (10:19)
[2024-07-22 13:33] LABS: BG CARBOXYHEMOGLOBIN 0.3 % (0.5-1.5); BG DEOXYHEMOGLOBIN 1.3 % (0.0-5.0); BG FRACTION INSPIRED OXYGEN 40; BG HCO3 ACT 31.7 mmol/L (21.0-28.0); BG METHEMOGLOBIN 0.1 % (0.5-1.5); BG OXYGEN SATURATION 98.7 % (94.0-98.0); BG OXYHEMOGLOBIN 98.3 % (94.0-98.0); BG PH 7.456 (7.350-7.450); BG PO2 147.6 mmHg (83.0-108.0); BG SAMPLE SITE RIGHT RADIAL; BG TOTAL HEMOGLOBIN 10.6 g/dL (13.5-17.5); BG VENT MODE MASK - BIPAP
[2024-07-22 16:15] LABS: PLATELET ESTIMATE NORMAL
[2024-07-23] VITALS (14 sets, daily range): BP systolic 123–143; BP diastolic 75–91; PULSE 78–104; RESP 15–25; TEMP 36.114–37.61412; O2SAT 96–100
[2024-07-23 07:11] LABS: CHLORIDE 102 mEq/L (98-107); POTASSIUM 3.7 mEq/L (3.5-5.1); SODIUM 142 mEq/L (136-145)
[2024-07-23 07:14] LABS: CALCIUM 8.8 mg/dL (8.7-10.4); CARBON DIOXIDE 31 mEq/L (21-32)
[2024-07-23 07:19] LABS: CREATININE 0.2 mg/dL (0.6-1.3); GLUCOSE 117 mg/dL (70-105); UREA NITROGEN BLOOD 5 mg/dL (9-23)
[2024-07-23 07:20] LABS: ALANINE AMINOTRANSFERASE 45 IU/L (10-49)
[2024-07-23 07:21] LABS: ALBUMIN 3.2 g/dL (3.2-4.8); ASPARTATE AMINOTRANSFERASE 24 IU/L (<34); BILIRUBIN DIRECT 0.3 mg/dL (<=3.0); BILIRUBIN TOTAL 0.8 mg/dL (0.1-1.0); PROTEIN TOTAL 5.7 g/dL (6.0-8.3)
[2024-07-23 07:23] LABS: AMMONIA 25 uMol/L (<32)
[2024-07-23 07:38] LABS: HEMATOCRIT. 33.9 % (42.0-52.0); HEMOGLOBIN. 11.4 g/dL (14.0-18.0); MEAN CORPUSCULAR HEMOGLOBIN 31.1 pg (28.0-32.0); MEAN CORPUSCULAR HGB CONC 33.7 g/dL (31.0-37.0); MEAN CORPUSCULAR VOLUME 92.1 fL (80.0-94.0); MEAN PLATELET VOLUME 7.1 fl (7.4-10.4); PLATELET 349 x1000/uL (130-400); RED BLOOD CELL COUNT 3.68 mill/uL (4.7-6.1); RED CELL DISTRIBUTION WIDTH 13.9 % (11.6-14.6); WHITE BLOOD COUNT 10.6 x1000/uL (4.5-11.0)
[2024-07-23 08:16] LABS: DIFFERENTIAL COMMENT 1
[2024-07-23] MEDS: FINASTERIDE 5MG TABLET NG SCH (09:58)
[2024-07-23] MEDS: BLOOD SUGAR DIAGNOSTIC STRIP TEST SCH (11:24)
[2024-07-23] MEDS: INSULIN LISPRO 100 UNITS/ML SUBCUT SCH (11:24)
[2024-07-23 14:14] LABS: PLATELET ESTIMATE NORMAL
[2024-07-24] VITALS (16 sets, daily range): BP systolic 115–157; BP diastolic 76–88; PULSE 69–89; RESP 9–21; TEMP 36.16956–36.72516; O2SAT 97–100
[2024-07-24 06:35] LABS: CHLORIDE 102 mEq/L (98-107); POTASSIUM 4.2 mEq/L (3.5-5.1); SODIUM 140 mEq/L (136-145)
[2024-07-24 06:36] LABS: CALCIUM 8.5 mg/dL (8.7-10.4); CARBON DIOXIDE 32 mEq/L (21-32)
[2024-07-24 06:41] LABS: CREATININE 0.2 mg/dL (0.6-1.3); GLUCOSE 105 mg/dL (70-105)
[2024-07-24 07:11] LABS: UREA NITROGEN BLOOD < 5 mg/dL (9-23)
[2024-07-24 07:18] LABS: HEMATOCRIT. 31.4 % (42.0-52.0); HEMOGLOBIN. 10.7 g/dL (14.0-18.0); MEAN CORPUSCULAR HEMOGLOBIN 31.2 pg (28.0-32.0); MEAN CORPUSCULAR HGB CONC 34.1 g/dL (31.0-37.0); MEAN CORPUSCULAR VOLUME 91.5 fL (80.0-94.0); MEAN PLATELET VOLUME 7.2 fl (7.4-10.4); PLATELET 307 x1000/uL (130-400); RED BLOOD CELL COUNT 3.44 mill/uL (4.7-6.1); RED CELL DISTRIBUTION WIDTH 13.5 % (11.6-14.6); WHITE BLOOD COUNT 8.6 x1000/uL (4.5-11.0)
[2024-07-24 09:12] LABS: DIFFERENTIAL COMMENT 1
[2024-07-25] VITALS (14 sets, daily range): BP systolic 111–147; BP diastolic 68–92; PULSE 69–87; RESP 14–22; TEMP 36.28068–36.89184; O2SAT 98–100
[2024-07-25 07:14] LABS: CARBON DIOXIDE 30 mEq/L (21-32); CHLORIDE 103 mEq/L (98-107); POTASSIUM 4.1 mEq/L (3.5-5.1); SODIUM 140 mEq/L (136-145)
[2024-07-25 07:15] LABS: CALCIUM 8.4 mg/dL (8.7-10.4)
[2024-07-25 07:20] LABS: CREATININE 0.2 mg/dL (0.6-1.3); GLUCOSE 126 mg/dL (70-105)
[2024-07-25 07:21] LABS: ALANINE AMINOTRANSFERASE 31 IU/L (10-49); ALBUMIN 2.9 g/dL (3.2-4.8); AMMONIA 34 uMol/L (<32); ASPARTATE AMINOTRANSFERASE 18 IU/L (<34)
[2024-07-25 07:22] LABS: BILIRUBIN DIRECT 0.2 mg/dL (<=3.0); BILIRUBIN TOTAL 0.6 mg/dL (0.1-1.0); PROTEIN TOTAL 4.9 g/dL (6.0-8.3)
[2024-07-25 07:25] LABS: HEMOGLOBIN. 11.8 g/dL (14.0-18.0); MEAN CORPUSCULAR HEMOGLOBIN 31.2 pg (28.0-32.0); MEAN CORPUSCULAR HGB CONC 33.6 g/dL (31.0-37.0); MEAN PLATELET VOLUME 6.9 fl (7.4-10.4); PLATELET 367 x1000/uL (130-400); RED BLOOD CELL COUNT 3.76 mill/uL (4.7-6.1); RED CELL DISTRIBUTION WIDTH 13.3 % (11.6-14.6); WHITE BLOOD COUNT 8.6 x1000/uL (4.5-11.0)
[2024-07-25 07:33] LABS: UREA NITROGEN BLOOD < 5 mg/dL (9-23)
[2024-07-25 08:15] LABS: DIFFERENTIAL COMMENT 1
[2024-07-25 08:55] LABS: PLATELET ESTIMATE NORMAL
[2024-07-25] MEDS: SERTRALINE HCL 50MG TABLET PO SCH (09:00)
[2024-07-25 11:37] LABS: BG BASE EXCESS 5.1 mmol/L (-2.0-3.0); BG CARBOXYHEMOGLOBIN 0.3 % (0.5-1.5); BG DEOXYHEMOGLOBIN 1.2 % (0.0-5.0); BG FRACTION INSPIRED OXYGEN 40; BG HCO3 ACT 31.3 mmol/L (21.0-28.0); BG METHEMOGLOBIN 0.1 % (0.5-1.5); BG OXYGEN SATURATION 98.8 % (94.0-98.0); BG OXYHEMOGLOBIN 98.4 % (94.0-98.0); BG PCO2 53.3 mmHg (35.0-48.0); BG PH 7.386 (7.350-7.450); BG PO2 163.9 mmHg (83.0-108.0); BG SAMPLE SITE RIGHT RADIAL; BG TOTAL HEMOGLOBIN 12.2 g/dL (13.5-17.5); BG VENT MODE MASK - BIPAP
[2024-07-25] MEDS ORDERED: IPRATROPIUM/ALBUTEROL 0.5-3(2.5)MG/3ML NEB HHN PRN (14:00)
[2024-07-25 15:22] LABS: PLATELET ESTIMATE NORMAL
[2024-07-26] VITALS (13 sets, daily range): BP systolic 107–135; BP diastolic 60–91; PULSE 70–96; RESP 13–21; TEMP 36.33624–37.11408; O2SAT 99–100
[2024-07-26 07:17] LABS: CHLORIDE 102 mEq/L (98-107); POTASSIUM 3.5 mEq/L (3.5-5.1); SODIUM 143 mEq/L (136-145)
[2024-07-26 07:18] LABS: CARBON DIOXIDE 35 mEq/L (21-32)
[2024-07-26 07:23] LABS: GLUCOSE 159 mg/dL (70-105); UREA NITROGEN BLOOD 5 mg/dL (9-23)
[2024-07-26 07:25] LABS: CALCIUM 8.5 mg/dL (8.7-10.4)
[2024-07-26 08:22] LABS: HEMATOCRIT. 34.7 % (42.0-52.0); HEMOGLOBIN. 11.6 g/dL (14.0-18.0); MEAN CORPUSCULAR HEMOGLOBIN 30.8 pg (28.0-32.0); MEAN CORPUSCULAR HGB CONC 33.5 g/dL (31.0-37.0); MEAN CORPUSCULAR VOLUME 91.8 fL (80.0-94.0); MEAN PLATELET VOLUME 6.9 fl (7.4-10.4); PLATELET 399 x1000/uL (130-400); RED BLOOD CELL COUNT 3.78 mill/uL (4.7-6.1); RED CELL DISTRIBUTION WIDTH 13.2 % (11.6-14.6); WHITE BLOOD COUNT 12.5 x1000/uL (4.5-11.0)
[2024-07-26 08:24] LABS: CREATININE 0.3 mg/dL (0.6-1.3)
[2024-07-26 09:52] LABS: DIFFERENTIAL COMMENT 1
[2024-07-26 15:47] LABS: BG BASE EXCESS 8.4 mmol/L (-2.0-3.0); BG CARBOXYHEMOGLOBIN 0.6 % (0.5-1.5); BG DEOXYHEMOGLOBIN 1.7 % (0.0-5.0); BG FRACTION INSPIRED OXYGEN 32; BG HCO3 ACT 38.5 mmol/L (21.0-28.0); BG METHEMOGLOBIN 0.2 % (0.5-1.5); BG OXYGEN SATURATION 98.3 % (94.0-98.0); BG OXYHEMOGLOBIN 97.5 % (94.0-98.0); BG PCO2 88.3 mmHg (35.0-48.0); BG PH 7.257 (7.350-7.450); BG PO2 118.3 mmHg (83.0-108.0); BG SAMPLE SITE RIGHT RADIAL; BG TOTAL HEMOGLOBIN 11.9 g/dL (13.5-17.5); BG VENT MODE NASAL CANNULA
[2024-07-26] MEDS ORDERED: ENOXAPARIN 60MG/0.6ML SYR SUBCUT SCH (19:00)
[2024-07-26 21:47] LABS: PLATELET ESTIMATE NORMAL
[2024-07-26] MEDS: ENOXAPARIN 60MG/0.6ML SYR SUBCUT SCH (22:10)
[2024-07-27] VITALS (17 sets, daily range): BP systolic 104–131; BP diastolic 58–77; PULSE 82–110; RESP 9–25; TEMP 36.44736–37.55856; O2SAT 98–100
[2024-07-27 08:38] LABS: HEMOGLOBIN. 10.2 g/dL (14.0-18.0); MEAN CORPUSCULAR HEMOGLOBIN 30.9 pg (28.0-32.0); MEAN CORPUSCULAR VOLUME 90.7 fL (80.0-94.0); PLATELET 357 x1000/uL (130-400); RED BLOOD CELL COUNT 3.31 mill/uL (4.7-6.1); RED CELL DISTRIBUTION WIDTH 13.6 % (11.6-14.6); WHITE BLOOD COUNT 13.6 x1000/uL (4.5-11.0)
[2024-07-27 08:47] LABS: CARBON DIOXIDE 37 mEq/L (21-32); CHLORIDE 101 mEq/L (98-107); SODIUM 144 mEq/L (136-145)
[2024-07-27 08:48] LABS: CALCIUM 8.4 mg/dL (8.7-10.4)
[2024-07-27 08:53] LABS: CREATININE 0.3 mg/dL (0.6-1.3); GLUCOSE 137 mg/dL (70-105); UREA NITROGEN BLOOD 8 mg/dL (9-23)
[2024-07-27 08:54] LABS: ALANINE AMINOTRANSFERASE 20 IU/L (10-49); ALBUMIN 2.7 g/dL (3.2-4.8); AMMONIA 66 uMol/L (<32); ASPARTATE AMINOTRANSFERASE 12 IU/L (<34)
[2024-07-27 08:55] LABS: BILIRUBIN TOTAL 0.2 mg/dL (0.1-1.0)
[2024-07-27 10:24] LABS: DIFFERENTIAL COMMENT 1
[2024-07-27] MEDS: FERROUS SULFATE 300MG/5ML UDC NG SCH (10:54)
[2024-07-27] MEDS ORDERED: VANCOMYCIN 1.5GM PMX (XELLIA) 300 ML IV SCH (16:00)
[2024-07-27] MEDS: CEFTAZIDIME PENTAHYDRATE 2 G in DEXT 5% WATER 100 ML IV SCH (17:07)
[2024-07-27] MEDS: LACTULOSE 20G/30ML UDC NG SCH (19:37)
[2024-07-27] MEDS: METHYLPREDNISOLONE SOD SUCC 40MG/ML (ACT-O-VIAL) IV SCH (19:37)
[2024-07-27] MEDS: VANCOMYCIN 1.5GM/250ML 250 ML IV SCH (19:38)
[2024-07-28] VITALS (14 sets, daily range): BP systolic 119–144; BP diastolic 66–91; PULSE 79–99; RESP 12–25; TEMP 36.3918–37.16964; O2SAT 98–100
[2024-07-28 06:14] LABS: AMMONIA 32 uMol/L (<32)
[2024-07-28 06:41] LABS: NUCLEATED RED BLOOD CELLS 1 /100 WBC; PLATELET ESTIMATE NORMAL
[2024-07-28 06:56] LABS: HEMATOCRIT. 30.6 % (42.0-52.0); HEMOGLOBIN. 10.4 g/dL (14.0-18.0); MEAN CORPUSCULAR HEMOGLOBIN 31.4 pg (28.0-32.0); MEAN CORPUSCULAR VOLUME 92.4 fL (80.0-94.0); PLATELET 356 x1000/uL (130-400); RED BLOOD CELL COUNT 3.31 mill/uL (4.7-6.1); RED CELL DISTRIBUTION WIDTH 13.7 % (11.6-14.6); WHITE BLOOD COUNT 10.9 x1000/uL (4.5-11.0)
[2024-07-28 07:28] LABS: CHLORIDE 95 mEq/L (98-107); POTASSIUM 4.7 mEq/L (3.5-5.1); SODIUM 136 mEq/L (136-145)
[2024-07-28 07:29] LABS: CARBON DIOXIDE 39 mEq/L (21-32)
[2024-07-28 07:30] LABS: CALCIUM 8.4 mg/dL (8.7-10.4)
[2024-07-28 07:34] LABS: CREATININE 0.3 mg/dL (0.6-1.3); GLUCOSE 132 mg/dL (70-105)
[2024-07-28 07:35] LABS: UREA NITROGEN BLOOD 10 mg/dL (9-23)
[2024-07-28 07:36] LABS: ALANINE AMINOTRANSFERASE 24 IU/L (10-49); ALBUMIN 2.9 g/dL (3.2-4.8); ASPARTATE AMINOTRANSFERASE 23 IU/L (<34)
[2024-07-28 07:37] LABS: BILIRUBIN TOTAL 0.3 mg/dL (0.1-1.0); PROTEIN TOTAL 5.2 g/dL (6.0-8.3)
[2024-07-28 08:08] LABS: DIFFERENTIAL COMMENT 1
[2024-07-28 08:25] LABS: BILIRUBIN DIRECT < 0.1 mg/dL (<=3.0)
[2024-07-28] MEDS: VANCOMYCIN 750MG PMX (XELLIA) 150 ML IV SCH (09:41)
[2024-07-28 11:44] LABS: BG BASE EXCESS 14.4 mmol/L (-2.0-3.0); BG CARBOXYHEMOGLOBIN 0.2 % (0.5-1.5); BG DEOXYHEMOGLOBIN 0.8 % (0.0-5.0); BG FRACTION INSPIRED OXYGEN 40; BG HCO3 ACT 41.9 mmol/L (21.0-28.0); BG METHEMOGLOBIN 0.2 % (0.5-1.5); BG OXYGEN SATURATION 99.2 % (94.0-98.0); BG OXYHEMOGLOBIN 98.8 % (94.0-98.0); BG PCO2 67.8 mmHg (35.0-48.0); BG PH 7.409 (7.350-7.450); BG PO2 165.5 mmHg (83.0-108.0); BG SAMPLE SITE RIGHT RADIAL; BG TOTAL HEMOGLOBIN 12.1 g/dL (13.5-17.5); BG VENT MODE NASAL CANNULA
[2024-07-28 12:14] LABS: PLATELET ESTIMATE NORMAL
== END 2024-07-28 19:45 | DRG 870 ==
LOC: ER 22:41 → MICUNO 07-12 05:40 → EDBEDREQSVC 07-12 13:28 → EDBEDREQ 07-12 15:18 → 5EST 07-18 09:43
PROVIDERS: ADMIT Internal Medicine; ATTEND Internal Medicine
PROC: 5A1955Z Respiratory Ventilation, Greater than 96 Consecutive Hours (ICD-10-PCS; principal; 2024-07-12)
PROC: 0BH17EZ Insertion of Endotracheal Airway into Trachea, Via Natural or Artificial Opening (ICD-10-PCS; 2024-07-12)
PROC: 4A00X4Z Measurement of Central Nervous Electrical Activity, External Approach (ICD-10-PCS; 2024-07-16)
PROC: 5A09457 Assistance with Respiratory Ventilation, 24-96 Consecutive Hours, Continuous Positive Airway Pressure (ICD-10-PCS; 2024-07-17)
PROC: 5A09357 Assistance with Respiratory Ventilation, Less than 24 Consecutive Hours, Continuous Positive Airway Pressure (ICD-10-PCS; 2024-07-19)
PROC: 5A09557 Assistance with Respiratory Ventilation, Greater than 96 Consecutive Hours, Continuous Positive Airway Pressure (ICD-10-PCS; 2024-07-20)
PROC: 4A00X4Z Measurement of Central Nervous Electrical Activity, External Approach (ICD-10-PCS; 2024-07-24)
PROC: 5A09457 Assistance with Respiratory Ventilation, 24-96 Consecutive Hours, Continuous Positive Airway Pressure (ICD-10-PCS; 2024-07-26)
PROC: 5A09357 Assistance with Respiratory Ventilation, Less than 24 Consecutive Hours, Continuous Positive Airway Pressure (ICD-10-PCS; 2024-07-28)
DX: A41.9 Sepsis, unspecified organism (principal); I46.9 Cardiac arrest, cause unspecified; J96.02 Acute respiratory failure with hypercapnia; J96.01 Acute respiratory failure with hypoxia; J18.9 Pneumonia, unspecified organism; E87.29 Other acidosis; I82.412 Acute embolism and thrombosis of left femoral vein; E72.20 Disorder of urea cycle metabolism, unspecified; N13.6 Pyonephrosis; E11.22 Type 2 diabetes mellitus with diabetic chronic kidney disease; I12.9 Hypertensive chronic kidney disease with stage 1 through stage 4 chronic kidney disease, or unspecified chronic kidney disease; N40.0 Benign prostatic hyperplasia without lower urinary tract symptoms; N18.9 Chronic kidney disease, unspecified; R13.12 Dysphagia, oropharyngeal phase; R62.7 Adult failure to thrive; D64.9 Anemia, unspecified; K64.9 Unspecified hemorrhoids; E78.5 Hyperlipidemia, unspecified; N41.9 Inflammatory disease of prostate, unspecified; E83.39 Other disorders of phosphorus metabolism; R45.1 Restlessness and agitation; Z79.4 Long term (current) use of insulin; Z79.899 Other long term (current) drug therapy; Z68.20 Body mass index [BMI] 20.0-20.9, adult; Z80.0 Family history of malignant neoplasm of digestive organs; N40.1 Benign prostatic hyperplasia with lower urinary tract symptoms
CPT/HCPCS: 31500; 36415; 36600; 71045; 71275; 74018; 74176; 76700; 80048; 80053; 80076; 80305; 81003; 82105; 82140; 82270; 82375; 82378; 82550; 82553; 82805; 82962; 83540; 83550; 83605; 83735; 83880; 84100; 84145; 84478; 84484; 85025; 86301; 86304; 86705; 86709; 87070; 87077; 87186; 87340; 92610; 93005; 93306; 93970; 94003; 94070; 94640; 94660; 94664; 95816; 97110; 97162; 97166; 97530; 99285; A4606; A6261; J0360; J0713; J1650; J1815; J2060; J2470; J2704; J2919; J2920; J3370; J3475; J3480; J7030; J7042; J7060; Q9967

== ENCOUNTER 2024-12-12 16:21 | Inpatient (IN) | payer MEDICARE, MEDICAID ==
[~2024-12-12] VITALS: Ht 177.8 cm; Wt 57.2 kg
[2024-12-12 16:50] VITALS: PULSE 113; RESP 14; O2SAT 100
[2024-12-12] MEDS: VANCOMYCIN 1G PREMIX 200 ML IV ONE (17:30)
[2024-12-12] MEDS: SODIUM CHLORIDE 0.9% (SEPSIS BOLUS) IV ONE (17:58)
[2024-12-12] MEDS: PIPERACILLIN/TAZO 3.375G/50ML 50 ML IV ONE (18:04)
[2024-12-12 18:16] LABS: DIFFERENTIAL COMMENT 1; HEMATOCRIT. 22.2 % (42.0-52.0); HEMOGLOBIN. 7.2 g/dL (14.0-18.0); MEAN CORPUSCULAR HEMOGLOBIN 26.2 pg (28.0-32.0); MEAN CORPUSCULAR HGB CONC 32.6 g/dL (31.0-37.0); MEAN CORPUSCULAR VOLUME 80.4 fL (80.0-94.0); MEAN PLATELET VOLUME 7.2 fl (7.4-10.4); PLATELET 475 x1000/uL (130-400); RED BLOOD CELL COUNT 2.76 mill/uL (4.7-6.1); RED CELL DISTRIBUTION WIDTH 18.2 % (11.6-14.6); WHITE BLOOD COUNT 17.9 x1000/uL (4.5-11.0)
[2024-12-12 18:18] LABS: CHLORIDE 94 mEq/L (98-107); POTASSIUM 4.3 mEq/L (3.5-5.1); SODIUM 139 mEq/L (136-145)
[2024-12-12 18:19] LABS: CALCIUM 9.2 mg/dL (8.7-10.4)
[2024-12-12 18:24] LABS: GLUCOSE 150 mg/dL (70-105); UREA NITROGEN BLOOD 24 mg/dL (9-23)
[2024-12-12 18:25] LABS: ALANINE AMINOTRANSFERASE 19 IU/L (10-49)
[2024-12-12 18:26] LABS: ALBUMIN 3.1 g/dL (3.2-4.8); ASPARTATE AMINOTRANSFERASE 14 IU/L (<34); BILIRUBIN DIRECT < 0.1 mg/dL (<=3.0); BILIRUBIN TOTAL 0.2 mg/dL (0.1-1.0); PROTEIN TOTAL 5.8 g/dL (6.0-8.3)
[2024-12-12 18:31] LABS: INR 1.1; PROTHROMBIN TIME 11.7 sec (9.6-11.0)
[2024-12-12 18:34] LABS: CARBON DIOXIDE > 40 mEq/L (21-32); CREATININE 0.2 mg/dL (0.6-1.3); TROPONIN I HIGH SENSITIVITY < 4 ng/L (3.0-53)
[2024-12-12 18:35] LABS: ANISOCYTOSIS 1+; HYPOCHROMASIA 1+; PLATELET ESTIMATE INCREASED
[2024-12-12 19:44] LABS: BG BASE EXCESS 13.1 mmol/L (-2.0-3.0); BG CARBOXYHEMOGLOBIN 0.5 % (0.5-1.5); BG DEOXYHEMOGLOBIN 3.2 % (0.0-5.0); BG FRACTION INSPIRED OXYGEN 30; BG HCO3 ACT 38.8 mmol/L (21.0-28.0); BG METHEMOGLOBIN 0.2 % (0.5-1.5); BG OXYGEN SATURATION 96.8 % (94.0-98.0); BG OXYHEMOGLOBIN 96.1 % (94.0-98.0); BG PH 7.451 (7.350-7.450); BG PO2 93.8 mmHg (83.0-108.0); BG SAMPLE SITE RIGHT RADIAL; BG TOTAL HEMOGLOBIN 9.6 g/dL (13.5-17.5); BG VENT MODE VENT - AC
[2024-12-12] MEDS ORDERED: IPRATROPIUM/ALBUTEROL 0.5-3(2.5)MG/3ML NEB HHN PRN (19:45)
[2024-12-12] MEDS ORDERED: DOCUSATE SODIUM 100MG CAPSULE PO PRN (19:45)
[2024-12-12] MEDS ORDERED: ONDANSETRON HCL 4MG/2ML INJ IV PRN (19:45)
[2024-12-12] MEDS ORDERED: MAGNESIUM/ALUMINUM HYDROXIDE/SIMETHICONE 30ML UDC PO PRN (19:45)
[2024-12-12] MEDS ORDERED: GUAIFENESIN 200MG/10ML SUGAR FREE UDC PO PRN (19:45)
[2024-12-12] MEDS ORDERED: CLONIDINE 0.1MG TABLET PO PRN (19:45)
[2024-12-12] MEDS: AZITHROMYCIN 500MG/250ML 250 ML IV SCH (20:19)
[2024-12-12 20:23] LABS: IRON 21 ug/dL (65-175)
[2024-12-12 20:25] LABS: PHOSPHORUS 2.9 mg/dL (2.5-4.9); TOTAL IRON BINDING CAPACITY 416 ug/dl (250-425)
[2024-12-12 20:29] LABS: FERRITIN 687 ng/mL (22-322); FOLIC ACID (FOLATE) SERUM > 20.00 ng/mL (>5.38); T4 FREE 1.19 ng/dL (0.89-1.76); THYROID STIMULATING HORMONE 1.85 uIU/mL (0.55-4.78)
[2024-12-12 20:39] VITALS: PULSE 108; RESP 14; O2SAT 100
[2024-12-12 22:31] LABS: AMMONIA 17 uMol/L (<32)
[2024-12-12 22:35] VITALS: BP 129/83; PULSE 108; RESP 14; TEMP 37.1; O2SAT 100
[2024-12-12 22:46] VITALS: PULSE 104; RESP 14; O2SAT 100
[2024-12-13] VITALS (31 sets, daily range): BP systolic 83–129; BP diastolic 54–92; PULSE 99–109; RESP 10–20; TEMP 36.9–37.94748; O2SAT 98–100
[2024-12-13] MEDS: VANCOMYCIN 500MG PREMIX 100 ML IV SCH (02:19)
[2024-12-13] MEDS: PIPERACILLIN/TAZO 3.375G/50ML 50 ML IV SCH ×2 (02:35→10:44)
[2024-12-13 02:36] LABS: CLARITY URINE CLEAR (CLEAR); COLOR URINE YELLOW (YELLOW); GLUCOSE URINE NEGATIVE (NEGATIVE); KETONES URINE NEGATIVE (NEGATIVE); LEUKOCYTE ESTERASE URINE 1+ (NEGATIVE); NITRITE URINE POSITIVE (NEGATIVE); OCCULT BLOOD URINE NEGATIVE (NEGATIVE); PROTEIN URINE 1+ (NEGATIVE); SPECIFIC GRAVITY URINE 1.016 (1.005-1.030); UROBILINOGEN URINE 0.2 E.U./dL (0.2-1.0)
[2024-12-13 03:38] LABS: BACTERIA URINE TRACE; RBC URINE NONE SEEN /hpf (0-2); SQUAMOUS EPITHELIAL CELL URINE NONE SEEN /lpf (RARE/1+); WBC URINE 0-2 /hpf (0-2)
[2024-12-13 07:04] LABS: MEAN CORPUSCULAR HGB CONC 33.5 g/dL (31.0-37.0); MEAN CORPUSCULAR VOLUME 80.8 fL (80.0-94.0); PLATELET 452 x1000/uL (130-400); RED BLOOD CELL COUNT 2.39 mill/uL (4.7-6.1); RED CELL DISTRIBUTION WIDTH 18.2 % (11.6-14.6); WHITE BLOOD COUNT 16.8 x1000/uL (4.5-11.0)
[2024-12-13 07:21] LABS: CREATINE KINASE MB FRACTION 2.1 ng/mL (0.5-3.6); TROPONIN I HIGH SENSITIVITY 4 ng/L (3.0-53)
[2024-12-13 07:22] LABS: CALCIUM 8.1 mg/dL (8.7-10.4); CARBON DIOXIDE 38 mEq/L (21-32); CHLORIDE 96 mEq/L (98-107); POTASSIUM 3.8 mEq/L (3.5-5.1); SODIUM 140 mEq/L (136-145)
[2024-12-13 07:27] LABS: GLUCOSE 87 mg/dL (70-105)
[2024-12-13 07:28] LABS: LDL CHOLESTEROL 57 mg/dL (5-100); TRIGLYCERIDE 87 mg/dL (0-150); UREA NITROGEN BLOOD 17 mg/dL (9-23)
[2024-12-13 07:29] LABS: CREATINE KINASE 26 IU/L (46-171)
[2024-12-13 07:29] LABS: CHOLESTEROL 99 mg/dL (<200); HDL CHOLESTEROL 31 mg/dL (>55)
[2024-12-13 07:30] LABS: PHOSPHORUS 2.2 mg/dL (2.5-4.9)
[2024-12-13 07:49] LABS: HEMOGLOBIN 6.5 g/dL (14.0-18.0)
[2024-12-13 07:51] LABS: HEMATOCRIT 19.3 % (42.0-52.0)
[2024-12-13] MEDS: SODIUM CHLORIDE 0.9% 1,000 ML IV SCH (08:55)
[2024-12-13] MEDS ORDERED: VANCOMYCIN 750MG PREMIX 150 ML IV SCH (09:00)
[2024-12-13 09:13] LABS: CREATININE < 0.2 mg/dL (0.6-1.3)
[2024-12-13] MEDS ORDERED: SODIUM CHLORIDE 0.9% 1,000 ML IV ONE (09:15)
[2024-12-13] MEDS: PANTOPRAZOLE SODIUM 40 MG/VIAL IV SCH (10:40)
[2024-12-13] MEDS: METOPROLOL TARTRATE 25MG TABLET PO SCH (10:40)
[2024-12-13 10:41] LABS: INFLUENZA TYPE A Presumptive Negative (Pres. Neg.)
[2024-12-13] MEDS: MULTIVITAMINS,THER W-MINERALS TABLET PO SCH (10:41)
[2024-12-13] MEDS: ZINC SULFATE 220 MG ( 50 ) CAPSULE PO SCH (10:41)
[2024-12-13] MEDS: SERTRALINE HCL 50MG TABLET PO SCH (10:41)
[2024-12-13 10:42] LABS: INFLUENZA TYPE B Presumptive Negative (Pres. Neg.); RESPIRATORY SYNCYTIAL VIRUS Not Detected (Not Detectd)
[2024-12-13] MEDS: MAGNESIUM 2 G PREMIX 50 ML IV SCH (10:43)
[2024-12-13] MEDS: VANCOMYCIN 1.25GM/250ML 250 ML IV SCH (18:00)
[2024-12-14] VITALS (24 sets, daily range): BP systolic 93–115; BP diastolic 64–79; PULSE 80–100; RESP 13–23; TEMP 36.1–37.7; O2SAT 98–100
[2024-12-14 01:26] LABS: HEMATOCRIT 25.7 % (42.0-52.0); HEMOGLOBIN 8.5 g/dL (14.0-18.0)
[2024-12-14] MEDS ORDERED: FINASTERIDE 5MG TABLET PO SCH (09:00)
[2024-12-14] MEDS ORDERED: DOCUSATE SODIUM SUGAR FREE 100MG/10ML UDC PEG PRN (09:00)
[2024-12-14 09:22] LABS: HEMATOCRIT 23.9 % (42.0-52.0); MEAN CORPUSCULAR HEMOGLOBIN 27.5 pg (28.0-32.0); MEAN CORPUSCULAR HGB CONC 33.6 g/dL (31.0-37.0); MEAN CORPUSCULAR VOLUME 81.9 fL (80.0-94.0); PLATELET 434 x1000/uL (130-400); RED BLOOD CELL COUNT 2.92 mill/uL (4.7-6.1); RED CELL DISTRIBUTION WIDTH 17.7 % (11.6-14.6)
[2024-12-14 09:53] LABS: CALCIUM 8.2 mg/dL (8.7-10.4); CARBON DIOXIDE 35 mEq/L (21-32); CHLORIDE 97 mEq/L (98-107); POTASSIUM 3.8 mEq/L (3.5-5.1); SODIUM 139 mEq/L (136-145)
[2024-12-14 09:58] LABS: CREATININE 0.2 mg/dL (0.6-1.3); GLUCOSE 98 mg/dL (70-105)
[2024-12-14 09:59] LABS: LACTATE DEHYDROGENASE 184 IU/L (120-246); UREA NITROGEN BLOOD 13 mg/dL (9-23)
[2024-12-14 10:00] LABS: ALANINE AMINOTRANSFERASE 16 IU/L (10-49); ALBUMIN 2.8 g/dL (3.2-4.8); ASPARTATE AMINOTRANSFERASE 15 IU/L (<34)
[2024-12-14 10:01] LABS: BILIRUBIN TOTAL 0.5 mg/dL (0.1-1.0); PROTEIN TOTAL 5.3 g/dL (6.0-8.3)
[2024-12-14] MEDS: FINASTERIDE 5MG TABLET GT SCH (10:35)
[2024-12-14] MEDS: SODIUM HYPOCHLORITE 0.125% 473ML SOLUTION TOP SCH (10:36)
[2024-12-14] MEDS: VANCOMYCIN 750MG PREMIX 150 ML IV SCH (13:15)
[2024-12-14 14:04] LABS: PROTEIN BODY FLUID 3.2 gm/dL
[2024-12-14 14:33] LABS: BODY FLUID MONOCYTES 12 %; BODY FLUID RBC 2645 /cu mm (0-2000); BODY FLUID WBC 220 /cu mm (0-200)
[2024-12-14] MEDS: IPRATROPIUM/ALBUTEROL 0.5-3(2.5)MG/3ML NEB HHN SCH (20:51)
[2024-12-14] MEDS: EPOETIN ALFA-EPBX 4,000 UNIT/ML VIAL SUBCUT SCH (21:12)
[2024-12-15] VITALS (20 sets, daily range): BP systolic 90–148; BP diastolic 59–85; PULSE 87–105; RESP 12–28; TEMP 36.4–37.8; O2SAT 99–100
[2024-12-15] MEDS ORDERED: LIDOCAINE HCL/EPINEPHRINE 1%-EPI 1:100,000 10ML VIAL INFIL SCH (09:30)
[2024-12-15] MEDS ORDERED: ZINC1CAP2 PO (15:04)
[2024-12-15] MEDS ORDERED: SERT50TA PO (15:04)
[2024-12-15] MEDS ORDERED: METO25TA6 PO (15:04)
[2024-12-15] MEDS ORDERED: CEFE1FRO2 IV (16:43)
[2024-12-16] VITALS (18 sets, daily range): BP systolic 87–109; BP diastolic 58–75; PULSE 80–104; RESP 10–23; TEMP 36.4–37.7; O2SAT 97–100
[2024-12-16 06:48] LABS: CHLORIDE 101 mEq/L (98-107); POTASSIUM 3.9 mEq/L (3.5-5.1); SODIUM 139 mEq/L (136-145)
[2024-12-16 06:49] LABS: CALCIUM 8.3 mg/dL (8.7-10.4); CARBON DIOXIDE 33 mEq/L (21-32)
[2024-12-16 06:54] LABS: CREATININE 0.2 mg/dL (0.6-1.3); GLUCOSE 111 mg/dL (70-105); UREA NITROGEN BLOOD 10 mg/dL (9-23)
[2024-12-16 13:20] LABS: HEMATOCRIT 22.8 % (42.0-52.0); HEMOGLOBIN 7.5 g/dL (14.0-18.0); MEAN CORPUSCULAR HEMOGLOBIN 27.6 pg (28.0-32.0); MEAN CORPUSCULAR HGB CONC 32.8 g/dL (31.0-37.0); PLATELET 395 x1000/uL (130-400); RED BLOOD CELL COUNT 2.71 mill/uL (4.7-6.1); WHITE BLOOD COUNT 12.1 x1000/uL (4.5-11.0)
[2024-12-17] VITALS (20 sets, daily range): BP systolic 94–104; BP diastolic 58–73; PULSE 93–133; RESP 10–25; TEMP 36.4–37.7; O2SAT 96–100
[2024-12-17] MEDS ORDERED: LIDOCAINE HCL 1% 10 MG/ML 10ML VIAL ONE (07:45)
[2024-12-17] MEDS: ACETAMINOPHEN 325MG TABLET PO PRN ×2 (10:36→21:08)
[2024-12-17] MEDS ORDERED: PIPE4.5F6 IV (14:39)
[2024-12-17] MEDS ORDERED: CEFE2FRO IV (14:47)
[2024-12-17] MEDS ORDERED: SODIUM CHLORIDE 0.9% 500 ML IV NR (16:25)
[2024-12-17] MEDS: CEFEPIME 2GM/50ML DUPLEX 50 ML IV SCH (21:07)
[2024-12-18] VITALS (17 sets, daily range): BP systolic 98–130; BP diastolic 67–86; PULSE 88–118; RESP 10–20; TEMP 36.4–37.9; O2SAT 97–100
[2024-12-18] MEDS: CEFEPIME 2GM PREMIX 100ML IV SCH (06:38)
== END 2024-12-18 16:33 | DRG 853 ==
LOC: ER 16:21 → EDBEDREQ 19:43 → ENRESERV 20:50 → CANRESERV 21:30 → ENRESERVTM 21:30 → ENRESERV 21:30 → 5EST 22:20
PROVIDERS: ADMIT Internal Medicine; ATTEND Internal Medicine
PROC: 5A1955Z Respiratory Ventilation, Greater than 96 Consecutive Hours (ICD-10-PCS; 2024-12-12)
PROC: 30233N1 Transfusion of Nonautologous Red Blood Cells into Peripheral Vein, Percutaneous Approach (ICD-10-PCS; 2024-12-13)
PROC: 0W993ZZ Drainage of Right Pleural Cavity, Percutaneous Approach (ICD-10-PCS; 2024-12-14)
PROC: 0JB70ZZ Excision of Back Subcutaneous Tissue and Fascia, Open Approach (ICD-10-PCS; principal; 2024-12-15)
DX: A41.52 Sepsis due to Pseudomonas (principal); G82.50 Quadriplegia, unspecified; L89.893 Pressure ulcer of other site, stage 3; L89.154 Pressure ulcer of sacral region, stage 4; L89.324 Pressure ulcer of left buttock, stage 4; L89.314 Pressure ulcer of right buttock, stage 4; J15.1 Pneumonia due to Pseudomonas; L89.613 Pressure ulcer of right heel, stage 3; L89.623 Pressure ulcer of left heel, stage 3; Z99.11 Dependence on respirator [ventilator] status; J96.12 Chronic respiratory failure with hypercapnia; R64 Cachexia; Q27.30 Arteriovenous malformation, site unspecified; E87.4 Mixed disorder of acid-base balance; J44.0 Chronic obstructive pulmonary disease with (acute) lower respiratory infection; J95.851 Ventilator associated pneumonia; J91.8 Pleural effusion in other conditions classified elsewhere; G93.49 Other encephalopathy; Z68.1 Body mass index [BMI] 19.9 or less, adult; Z16.23 Resistance to quinolones and fluoroquinolones; I12.9 Hypertensive chronic kidney disease with stage 1 through stage 4 chronic kidney disease, or unspecified chronic kidney disease; N18.9 Chronic kidney disease, unspecified; N30.90 Cystitis, unspecified without hematuria; I95.9 Hypotension, unspecified; K21.9 Gastro-esophageal reflux disease without esophagitis; D75.838 Other thrombocytosis; N40.0 Benign prostatic hyperplasia without lower urinary tract symptoms; E11.22 Type 2 diabetes mellitus with diabetic chronic kidney disease; B37.9 Candidiasis, unspecified; F41.9 Anxiety disorder, unspecified; F32.A Depression, unspecified; L89.890 Pressure ulcer of other site, unstageable; D63.8 Anemia in other chronic diseases classified elsewhere; S60.222A Contusion of left hand, initial encounter; S60.221A Contusion of right hand, initial encounter; X58.XXXA Exposure to other specified factors, initial encounter; S80.12XA Contusion of left lower leg, initial encounter; S80.11XA Contusion of right lower leg, initial encounter; I25.2 Old myocardial infarction; Z86.74 Personal history of sudden cardiac arrest; Z86.718 Personal history of other venous thrombosis and embolism; Z93.59 Other cystostomy status; Z93.1 Gastrostomy status; Z79.899 Other long term (current) drug therapy; Z93.0 Tracheostomy status; Y93.89 Activity, other specified; Y92.89 Other specified places as the place of occurrence of the external cause; Y99.8 Other external cause status; Z74.01 Bed confinement status
CPT/HCPCS: 31720; 32555; 36415; 36600; 71045; 76604; 80048; 80053; 80061; 80076; 80202; 81003; 82040; 82140; 82375; 82550; 82553; 82728; 82746; 82805; 82962; 83036; 83540; 83550; 83605; 83615; 83735; 84100; 84145; 84439; 84443; 84484; 85014; 85018; 85025; 85027; 86850; 86900; 86920; 87070; 87077; 87186; 87420; 87804; 88108; 93005; 93970; 94002; 94003; 94070; 94640; 99291; A4606; J0456; J0692; J0885; J2003; J2470; J2543; J3370; J3475; J7030; P9016